=== PATIENT | female | born 1950 | race Caucasian/White ===

== ENCOUNTER → 2020-12-28 11:08 | Outpatient (CLI) | payer MEDICARE, SELFPAY ==
[2020-12-28 11:26] LABS: Pathologist Comment May follow
[2020-12-28 12:02] LABS: Synovial Fld Mononuclear WBC % 54.4 %; Synovial Fld Polynuclear WBC # 3.909 10^3/uL; Synovial Fld Polynuclear WBC % 45.6 %
[2020-12-28 12:06] LABS: AUTO B FLUID DILUENT BKGD CT WBC <0.1 RBC <0.01 (W<.1,R<.01); Appearance /Synovial Fluid Sl Cl (CLEAR); Color / Synovial Fluid Yellow (Pale Yellow); Source / Synovial Fluid RIGHT KNEE
[2020-12-28 12:33] LABS: Lymph 36 %; Monocyte /Synovial Fluid 16 %; Neutrophil 48 % (0-25)
[2020-12-28 12:34] LABS: Body Fluid QC Type(s) BF1Q,BF2Q; RBC /Synovial Fluid 164 /mm3 (0)
[2020-12-29 08:39] LABS: Source- Body Fluid SYNOVIAL
[2020-12-29 12:31] LABS: Pathologist Review Reviewed
== END ==
PROVIDERS: Referring Provider Physician Assistant; Visit Provider Physician Assistant
DX: M17.31 Unilateral post-traumatic osteoarthritis, right knee (principal)
CPT/HCPCS: 87070; 87075; 87205; 89050; 89051; 89060